=== PATIENT | male | born 1950 | race Caucasian/White ===

== ENCOUNTER 2022-12-26 19:53 | Inpatient (IN) ==
[2022-12-26 20:57] LABS: Basophils # (auto) 0.04 K/uL (0-0.2); Basophils % (auto) 0.3 %; Eosinophils # (auto) 0.72 K/uL (0-0.50); Eosinophils % (auto) 6.1 %; Hematocrit (blood only) 28.2 % (42.0-52.0); Immature Granulocytes # (auto) 0.13 K/uL (0.01-0.20); Immature Granulocytes % (auto) 1.1 %; Lymphocytes # (auto) 1.68 K/uL (1.2-3.4); Lymphocytes % (auto) 14.3 %; Mean Corpuscular Hemoglobin 29.9 pg (25.0-34.0); Mean Corpuscular Hgb Conc 31.9 g/dL (32.0-36.0); Mean Corpuscular Volume 93.7 fL (80.0-100.0); Mean Platelet Volume 10.4 fL (9.4-12.4); Monocytes % (auto) 4.3 %; Neutrophils # (auto) 8.66 K/uL (1.40-6.50); Neutrophils % (auto) 73.9 %; Platelet Count 275 K/uL (130-400); RDW Coefficient of Variation 13.8 % (11.5-14.5); RDW Standard Deviation 46.8 fL (36.4-46.3); Red Blood Count 3.01 M/uL (4.70-6.10); White Blood Count 11.73 K/ul (4.8-10.8)
[2022-12-26] MEDS ORDERED: SODIUM CHLORIDE 0.9% 1000ML 1,000 ML IV ONE (21:02)
--- NOTE | 2022-12-26 21:07 | Emergency Department Note ---
Impression & Plan Syncope, Anemia, Acute hypotension ED Provider Note Name: MARIELY CORONADO Age: 71 Sex: M Arrives Via: Ambulance Informant: Patient, ED Provider: Darrell Morris MD Chief Complaint: Syncope Impression: As per impressions above Medical Decision Making: Pleasant 71-year-old gentleman with history of hyperlipidemia who had a left knee replacement last week. He had been doing well and was increasing activity levels. Had a syncopal event followed by a second syncopal event with questionable shaking of the right arm this evening. Pale diaphoretic for his and EMS. No head injury or trauma during this. On arrival patient is mildly hypotensive, pale appearing and tired. He has extensive bruising of the left leg. Given recent surgery and the syncope he had a CT of the head without contrast which was negative as well as a CT PE study which is negative. His laboratory findings are remarkable for anemia of hemoglobin 9 which is a drop from 13-14 as an outpatient prior to surgery. He is adamant no black or bloody stools and that he had a normal brown bowel movement this morning. He has soft nontender abdomen. EKG is unremarkable as is his initial troponin. I suspect his syncope is likely exertional vasovagal plus his anemia postoperatively however in the setting of initial hypotension, anemia, age his Andover score is not low risk and thus hospitalization is indicated. Patient is comfortable with hospitalization as his . I will note he was given some IV fluids and looks significantly improved and feeling much better. Hospitalist consulted for further management Prior Medical Record and Triage/Nursing Notes reviewed by Me External chart reviewed by me including recent hospitalization for left knee replacement Differentials: Vasovagal event, dehydration, infection, hypoglycemia, electroly te abnormalities, cardiac sources, intracerebral event, pulmonary embolism, seizure, toxicologic, neurologic, as well as other pathologies. Vital Signs: reviewed and remarkable for no significant abnormalities Interventions: Normal saline bolus 1 L IV Labs:Reviewed and remarkable for anemia other labs reviewed me Imaging:CT of the chest with angio as per my informal interpretation. No pneumothorax, no pneumonia, no effusion. There is no clear evidence of PE appreciated. This was confirmed by radiologist. CT of the head without contrast as per my informal interpretation. There is no intracranial hemorrhage or mass effect appreciated. This was confirmed by radiologist. EKG:As per my interpretation. Indication syncope. Normal sinus rhythm 85 bpm QTc of 423. There is no ectopy nor ischemia. Compared to an EKG of June 09, 2022 there is no significant change. Cardiac/Tele Monitoring: Cardiac Monitoring: An Order was placed for continuous cardiac monitoring. The monitor shows a rate of 80 with a normal sinus rhythm. [facility] Disposition:Hospitalization. Condition: Good History of Present Illness:71-year-old male arrives for evaluation of syncope. Patient had a left knee replacement at this facility 1 week ago. There were no complications. He states he was doing well for the last week. He has been doing his therapy and has not had any major issues. Today he was doing his exercises undergone up the stairs and then back into the kitchen. notes he looked severely lightheaded pale and diaphoretic. This was followed by a brief syncopal episode. He did not strike his head or fall to the ground. Patient came to briefly and mumbled some and then passed out again. called 911. By time EMS arrived patient was coming to was answering questions but was still somewhat diaphoretic. notes patient looks quite pale right now. She does note that during the 1 syncope it seemed like his right arm was shaking some. Patient denies any shortness of breath, chest pain, nausea, vomiting, abdominal pain, back pain, black or bloody stools, headache, neurologic deficits, any other concerning signs or symptoms other than some mild left knee discomfort which has been ongoing since the surgery and its not bothering him much. He did take a Oxy IR earlier today. He has no history of stomach ulcers, PEs or bleeding disorder. Past History:Hyperlipidemia Home Medications:Aspirin 81 mg daily, Celebrex, Zyrtec, simvastatin, Percocet Allergies:Latex Vitals:Blood Pressure: 102/70, Pulse 105, RR 13, T 36.5C, O2 98% on RA Physical Exam: GENERAL: Patient is pale/tired appearing and in minimal distress. HEAD: AT/NC FACE: Pale conjunctiva, dry membranes RESPIRATORY: No dyspnea. Clear to auscultation and equal bilaterally. No wheeze, no rhonchi. CARDIOVASCULAR: Tachy.No murmurs, rubs, gallops appreciated. GASTROINTESTINAL: Abdomen soft, non-tender, no peritonitis.Bowel sounds positive.No masses appreciated. EXTREMITIES: Left leg. Left leg is in a compression stocking. There is bruising over the left medial thigh and the left knee is moderately swollen but nontender with dressing intact. No tenderness over the left calf or significant swelling appreciated. Good distal pulses. Otherwise normal motion all extremities, no cyanosis, no edema. NEUROLOGIC: Alert and oriented, no focal neurologic deficit appreciated SKIN: No rash, no jaundice, no diaphoresis. PSYCH: Appropriate GCS: 15 ED Course: Times/Reassessments: Patient vastly improved after some IV fluids. He looks well and is in no distress however given his syncope risk scoring he is agreeable to hospitalization Darrell Morris MD Past Med/Surg History Medical History Hyperlipidemia Osteoarthritis Left knee Surgical History H/O colonoscopy History of anesthesia reaction Spinal patch needed/placed after epidural for surgery in 1993 History of open reduction and internal fixation (ORIF) procedure 1993 - Right lower leg History of open reduction and internal fixation (ORIF) procedure Left ankle ORIF (06/09/22): LMA#5 + PNB at [facility] Hx of cataract extraction R/L Family History Mother , age 90 Heart disease Father , age 41 of an [place] Myocardial infarction Other No family history of adverse response to anesthesia Denies family history of Ovarian cancer Prostate cancer Breast cancer Lung cancer Colorectal cancer Social History (Updated 12/27/22 @ 10:02 by Lion Bergman MD) Smoking Status: Never smoker Tobacco Type: Cigarettes Second Hand Exposure: No; Do You Dip or Chew Tobacco: No; Hx Alcohol Use: Yes Alcohol type: wine Alcohol Intake Frequency Comment: daily Hx Substance Use: No Preferred Language: Serbian Communication Ability: Effective Visual Impairment: Partially Limited Hearing Ability: Normal Commodity Industry Analyst Required: No Beliefs That Will Affect Care: None marital status: Current Living Situation: Spouse 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 Feels Safe at Home: Yes Safety Concerns: Feels Safe At This Time Childhood Exposure to Second-Hand Smoke: Yes caffeine: Yes Dental Care, Regularly: Yes Physical Activity Frequency: Daily Seatbelt Use: always Sunscreen Use: Yes Assistive Devices: Walker Allergies Allergies Allergy/AdvReac Type Severity Reaction Status Date / Time latex Allergy Mild itchy nose Verified 12/19/22 06:19 Home Meds Home Medications Medication Instructions Recorded Confirmed cetirizine 10 mg tablet (Zyrtec) 10 mg PO DAILY PRN Allergy Symptoms 11/05/21 12/26/22 multivitamin 1 tab PO QAM 11/05/21 12/26/22 coenzyme Q10 100 mg capsule (Co 100 mg PO HS 11/11/22 12/26/22 Q-10) ezetimibe 10 mg tablet 10 mg PO QPM 11/11/22 12/26/22 loratadine-pseudoephedrine ER 10 1 tab PO DAILY PRN Allergy Symptoms 11/11/22 12/26/22 mg-240 mg tablet,extended [id number] (Claritin-D 24 Hour) simvastatin 40 mg tablet 40 mg PO QPM 11/11/22 12/26/22 Previous Rx's Medication Instructions Recorded aspirin 81 mg tablet,delayed 81 mg PO BID #60 tabs 12/19/22 release celecoxib 200 mg capsule (Celebrex) 200 mg PO Q12H PRN pain #30 caps 12/19/22 oxycodone-acetaminophen 5 mg-325 1 tab PO Q6H PRN pain #30 tabs 12/19/22 mg tablet (Percocet) Results & Data (ED) Vital Signs Vital Signs - 24 hr 12/26/22 20:42 12/26/22 20:22 12/26/22 20:44 Temperature 36.5 C Temperature Source Oral Pulse Rate 73 93 H Pulse Rate [Finger] Respiratory Rate 18 Respiratory Effort / Characteristics Respiratory Depth Normal Blood Pressure 102/70 Blood Pressure [Right Arm] Blood Pressure Mean 80 Blood Pressure Mean [Right Arm] Pulse Oximetry 96 98 Oxygen Delivery Method Room Air Room Air Sepsis Recent Fever Within 48 Hours No Sepsis New/Unexplained Change in Mental Status No Sepsis Action Taken by Nursing No Action Required 12/26/22 20:45 12/26/22 20:45 12/26/22 23:38 Temperature Temperature Source Pulse Rate Pulse Rate [Finger] 84 Respiratory Rate 13 18 Respiratory Effort / Characteristics Non-Labored Spontaneous Respiratory Depth Normal Normal Blood Pressure Blood Pressure [Right Arm] 102/70 112/73 Blood Pressure Mean Blood Pressure Mean [Right Arm] 80 86 Pulse Oximetry 97 98 98 Oxygen Delivery Method Room Air Room Air Sepsis Recent Fever Within 48 Hours Sepsis New/Unexplained Change in Mental Status Sepsis Action Taken by Nursing Laboratory Data 12/26/22 20:20 12/26/22 20:20 Lab Results 12/26/22 12/26/22 12/26/22 Range/Units 20:20 20:20 20:20 WBC 11.73 H (4.8-10.8) K/ul RBC 3.01 L (4.70-6.10) M/uL Hgb 9.0 L (14.0-18.0) g/dl Hct 28.2 L (42.0-52.0) % MCV 93.7 (80.0-100.0) fL MCH 29.9 (25.0-34.0) pg MCHC 31.9 L (32.0-36.0) g/dL RDW Std Deviation 46.8 H (36.4-46.3) fL RDW Coeff of Concepcion 13.8 (11.5-14.5) % Plt Count 275 (130-400) K/uL MPV 10.4 (9.4-12.4) fL Immature Gran % (Auto) 1.1 % Neut % (Auto) 73.9 % Lymph % (Auto) 14.3 % Stanley % (Auto) 4.3 % Eos % (Auto) 6.1 % Baso % (Auto) 0.3 % Neut # (Auto) 8.66 H (1.40-6.50) K/uL Lymph # (Auto) 1.68 (1.2-3.4) K/uL Stanley # (Auto) 0.50 (0.11-0.59) K/uL Eos # (Auto) 0.72 H (0-0.50) K/uL Baso # (Auto) 0.04 (0-0.2) K/uL Immature Gran # (Auto) 0.13 (0.01-0.20) K/uL Sodium 135 L (136-145) mmol/L Potassium 4.3 (3.5-5.1) mmol/L Chloride 103 (98-107) mmol/L Carbon Dioxide 25 (21-32) mmol/L Anion Gap 7 (3-11) BUN 29 H (6-23) mg/dl Creatinine 0.80 (0.6-1.4) mg/dl Est Cr Clr Drug Dosing 93.3 ml/min Est GFR ( Amer) 104.9 ml/min Est GFR (Non-Af Amer) 90.5 ml/min BUN/Creatinine Ratio 36.3 H (10-20) Glucose 141 H (70-99(Fasting)) mg/dl Calcium 8.5 L (8.6-10.3) mg/dl Magnesium 1.9 (1.7-2.4) mg/dl Total Bilirubin 0.5 (0.2-1.0) mg/dl AST 14 (13-39) U/L ALT 14 (7-52) U/L Alkaline Phosphatase 59 (34-104) U/L Total Protein 6.1 (6.0-8.3) gm/dl Albumin 3.3 L (3.4-5.0) gm/dl Globulin 2.8 (2.5-4.0) gm/dl Albumin/Globulin Ratio 1.2 (0.9-2) TSH 3.347 (0.300-4.500) uIu/ml Urine Color Urine Appearance (Clear) Urine pH (4.5-7.5) Ur Specific [place] (1.000-1.030) Urine Protein (Negative) Urine Glucose (UA) (Negative) Urine Ketones (Negative) Urine Blood (Negative) Urine Nitrite (Negative) Urine Bilirubin (Negative) Urine Urobilinogen (Negative) Ur Leukocyte Esterase (Negative) 12/26/22 Range/Units 21:55 WBC (4.8-10.8) K/ul RBC (4.70-6.10) M/uL Hgb (14.0-18.0) g/dl Hct (42.0-52.0) % MCV (80.0-100.0) fL MCH (25.0-34.0) pg MCHC (32.0-36.0) g/dL RDW Std Deviation (36.4-46.3) fL RDW Coeff of Concepcion (11.5-14.5) % Plt Count (130-400) K/uL MPV (9.4-12.4) fL Immature Gran % (Auto) % Neut % (Auto) % Lymph % (Auto) % Stanley % (Auto) % Eos % (Auto) % Baso % (Auto) % Neut # (Auto) (1.40-6.50) K/uL Lymph # (Auto) (1.2-3.4) K/uL Stanley # (Auto) (0.11-0.59) K/uL Eos # (Auto) (0-0.50) K/uL Baso # (Auto) (0-0.2) K/uL Immature Gran # (Auto) (0.01-0.20) K/uL Sodium (136-145) mmol/L Potassium (3.5-5.1) mmol/L Chloride (98-107) mmol/L Carbon Dioxide (21-32) mmol/L Anion Gap (3-11) BUN (6-23) mg/dl Creatinine (0.6-1.4) mg/dl Est Cr Clr Drug Dosing ml/min Est GFR ( Amer) ml/min Est GFR (Non-Af Amer) ml/min BUN/Creatinine Ratio (10-20) Glucose (70-99(Fasting)) mg/dl Calcium (8.6-10.3) mg/dl Magnesium (1.7-2.4) mg/dl Total Bilirubin (0.2-1.0) mg/dl AST (13-39) U/L ALT (7-52) U/L Alkaline Phosphatase (34-104) U/L Total Protein (6.0-8.3) gm/dl Albumin (3.4-5.0) gm/dl Globulin (2.5-4.0) gm/dl Albumin/Globulin Ratio (0.9-2) TSH (0.300-4.500) uIu/ml Urine Color Yellow Urine Appearance Clear (Clear) Urine pH 5.5 (4.5-7.5) Ur Specific [place] 1.043 H (1.000-1.030) Urine Protein Negative (Negative) Urine Glucose (UA) Negative (Negative) Urine Ketones Trace H (Negative) Urine Blood Negative (Negative) Urine Nitrite Negative (Negative) Urine Bilirubin Negative (Negative) Urine Urobilinogen Negative (Negative) Ur Leukocyte Esterase Negative (Negative) Administered Medications Aspirin (Aspirin 81 Mg Ectab) 81 mg PO BID JACKELINE Stop: 01/26/23 01:15 Last Admin: 12/27/22 08:31 Dose: 81 mg Documented By: Admin: 12/27/22 01:58 Dose: 81 mg Documented By: CJC Ezetimibe (Ezetimibe 10 Mg Tablet) 10 mg PO QPM JACKELINE Stop: 01/26/23 20:59 Last Admin: 12/27/22 01:59 Dose: 10 mg Documented By: MARCELLA Sodium Chloride (Nss 1000ml) 1,000 mls @ 125 mls/hr IV .Q8H JACKELINE Stop: 01/26/23 08:14 Last Admin: 12/27/22 08:31 Dose: 125 mls/hr Documented By: ANTONIO Pantoprazole Sodium 40 mg/ (Syringe) 10 mls @ 5 mls/min IV BID JACKELINE Stop: 01/26/23 10:29 Last Admin: 12/27/22 10:58 Dose: 5 mls/min Documented By: ANTONIO Simvastatin (Simvastatin 40 Mg Tab) 40 mg PO QPM JACKELINE Stop: 01/26/23 20:59 Last Admin: 12/27/22 01:58 Dose: 40 mg Documented By: MARCELLA Discontinued Medications Celecoxib (Celebrex 200 Mg Cap) 200 mg PO Q12H PRN PRN Reason: pain Stop: 01/26/23 01:15 Last Admin: 12/27/22 01:58 Dose: 200 mg Documented By: MARCELLA Sodium Chloride (Nss 1000ml) 1,000 mls @ 999 mls/hr IV .Q1H1M ONE Stop: 12/26/22 22:02 Last Infusion: 12/26/22 23:29 Dose: 0 mls/hr Documented By: Admin: 12/26/22 22:08 Dose: 999 mls/hr Documented By: JENY Ioversol (Ioversol 350 Mg 125ml Prefilled Syringe) 119 ml IV ONCE ONE Stop: 12/26/22 21:38 Last Admin: 12/26/22 21:37 Dose: 119 ml Documented By: SHANTE Discharge Plan Visit Data Chief Complaint: Seizure Stated Complaint: SEIZURE LIKE ACTIVITY ED Provider: Darrell Morris Discharge Problem: Syncope, Anemia, Acute hypotension Patient Disposition: Admitted As Inpatient Discharge Instructions Interventions: ED Discharge Assessment Last Done: 12/27/22 00:59
[2022-12-26 21:13] LABS: Albumin Globulin Ratio 1.2 (0.9-2); Albumin Level 3.3 gm/dl (3.4-5.0); BUN Creatinine Ratio 36.3 (10-20); Bilirubin,Total 0.5 mg/dl (0.2-1.0); Calcium 8.5 mg/dl (8.6-10.3); Creatinine Clr Calc Pharmacy 93.3 ml/min; Est GFR (African American) 104.9 ml/min; Est GFR (Non-African American) 90.5 ml/min; Globulin 2.8 gm/dl (2.5-4.0); Magnesium 1.9 mg/dl (1.7-2.4); Potassium 4.3 mmol/L (3.5-5.1); Total Protein 6.1 gm/dl (6.0-8.3)
[2022-12-26] MEDS ORDERED: IOVERSOL 350 MG 125mL Prefilled Syringe IV ONE (21:37)
--- NOTE | 2022-12-26 22:01 | CT Scan Report ---
Exam(s): CT HEAD Without Contrast EXAM: CT Head Without Intravenous Contrast CLINICAL HISTORY: Reason for exam: syncope. TECHNIQUE: Axial computed tomography images of the head/brain without intravenous contrast. CTDI is 35.65 mGy and DLP is 625.41 mGy-cm. Automated exposure control was utilized for the study. A dose lowering technique was utilized adhering to the principles of ALARA. COMPARISON: No relevant prior studies available. FINDINGS: No acute intracranial hemorrhage. No midline shift or mass effect. The territorial oswald-white matter differentiation is maintained throughout. Age-related cerebral volume loss. Periventricular and subcortical white matter hypoattenuation, consistent with chronic microangiopathy. The visualized orbits appear grossly unremarkable. The calvarium is intact. The visualized paranasal sinuses and mastoid air cells are grossly clear. IMPRESSION: No acute intracranial hemorrhage, midline shift, or mass effect. Electronically signed by: Andrey Medeiros MD 12/26/22 22:00 PM
--- NOTE | 2022-12-26 22:02 | CT Scan Report ---
Exam(s): CTA CHEST IV Amt: 119 ml optiray 350 EXAM: CT Angiography Chest With Intravenous Contrast CLINICAL HISTORY: Reason for exam: PE - syncope post op. TECHNIQUE: Axial computed tomographic angiography images of the chest with intravenous contrast. CTDI is 26.5 mGy and DLP is 948.6 mGy-cm. Automated exposure control was utilized for the study. A dose lowering technique was utilized adhering to the principles of ALARA. MIP reconstructed images were created and reviewed. COMPARISON: No relevant prior studies available. FINDINGS: Pulmonary arteries: Unremarkable. No acute pulmonary embolism. Aorta: Atherosclerotic changes of the aorta. No thoracic aortic aneurysm. Lungs: Unremarkable. No mass. No consolidation. Pleural space: Unremarkable. No significant effusion. No pneumothorax. Heart: Unremarkable. No cardiomegaly. No significant pericardial effusion. No evidence of RV dysfunction. Mediastinum: Small hiatal hernia. Bones/joints: Degenerative changes of the spine. No acute fracture. No dislocation. Soft tissues: Unremarkable. Lymph nodes: Unremarkable. No enlarged lymph nodes. IMPRESSION: No acute pulmonary embolism. Electronically signed by: Andrey Medeiros MD 12/26/22 22:01 PM
[2022-12-26 22:28] LABS: Appearance Urine Clear (Clear); Bilirubin Urine Negative (Negative); Blood Urine Negative (Negative); Color Urine Yellow; Glucose Urine UA Negative (Negative); Ketones Urine Trace (Negative); Leukocyte Esterase Urine Negative (Negative); Nitrite Urine Negative (Negative); Protein Urine Negative (Negative); Specific Gravity Urine 1.043 (1.000-1.030); Urobilinogen Urine Negative (Negative); pH Urine 5.5 (4.5-7.5)
--- NOTE | 2022-12-26 23:45 | History & Physical Report ---
Date of Service December 26, 2022 Assessment & Plan (1) Seizure-like activity: Plan: 71 yo male with PMHx of allergic rhinitis and dyslipidemia presents with seizure like activity. #Seizure like activity -presented with 2 episodes of seizure like activity earlier this afternoon. He appeared to have a prodromal state, no recollection of episodes, and no post ictal state. Ddx CVA vs seizure. Vitals wnl, afebrile. Mild leukocytosis however less likely due to infection. Trop neg. UA neg. -CTA without PE -CT head unremarkable -MRI brain pending -CTA head/neck pending; will obtain in am since he received contrast with CTA chest -echo pending -A1c, lipids pending -neuro checks, seizure/fall precautions -monitor on tele -neurology consulted #H/o L TKA -procedure was 1 wk ago, progressing well. Follows with [facility] ortho. Cont. ASA for DVT ppx per ortho recs. Celecoxib prn for pain/anti-inflammation. #Dyslipidemia -cont. simvastatin, ezetimibe DVT ppx: ASA (per ortho) FEN/GI: regular Code Status: full Dispo: PCU (2) Status post left knee replacement: (3) Allergic rhinitis: (4) Dyslipidemia: History of Present Illness Chief Complaint: seizure like activity Primary Care Provider: Jhony Rodriguez, 71 yo male with PMHx of allergic rhinitis and dyslipidemia presents with seizure like activity. at bedside. This afternoon he had finished his physical therapy s/p TKA and shortly after started having chills, diaphoresis, and lightheadedness. He sat down on a chair and per his head fell backwards with his eyes wide open for about 30 seconds. During this he had a mild R arm tremor. Denies post ictal state but does not recall this seizure like activity episode. His proceeded to call 911 and the patient had a 2nd episode similar to the first. Denies fever, fatigue, headache, chest pain, sob, abd pain, nausea, vomiting, diarrhea, constipation, dysuria, extremity numbness/tingling/weakness. FHx of stroke in grandfather as well as LA in father at the age of 41. He has no h/o seizure or syncope. No heart history. Of note patient did have a L TKA performed 1 wk ago. He is on ASA for DVT ppx and celecoxib for pain/anti-inflammation. He did take an oxycodone earlier in the day without complaints and has taken a few doses over the past week. He has been doing PT at home and progressing well without complaints. Follows with ortho. Allergies Allergy/AdvReac Type Severity Reaction Status Date / Time latex Allergy Mild itchy nose Verified 12/19/22 06:19 Home Medications Medication Instructions Recorded Confirmed Type cetirizine 10 mg tablet (Zyrtec) 10 mg PO DAILY PRN Allergy Symptoms 11/05/21 12/26/22 History multivitamin 1 tab PO QAM 11/05/21 12/26/22 History coenzyme Q10 100 mg capsule (Co 100 mg PO HS 11/11/22 12/26/22 History Q-10) ezetimibe 10 mg tablet 10 mg PO QPM 11/11/22 12/26/22 History loratadine-pseudoephedrine ER 10 1 tab PO DAILY PRN Allergy Symptoms 11/11/22 12/26/22 History mg-240 mg tablet,extended [id number] (Claritin-D 24 Hour) simvastatin 40 mg tablet 40 mg PO QPM 11/11/22 12/26/22 History aspirin 81 mg tablet,delayed 81 mg PO BID #60 tabs 12/19/22 12/26/22 Rx release celecoxib 200 mg capsule (Celebrex) 200 mg PO Q12H PRN pain #30 caps 12/19/22 12/26/22 Rx oxycodone-acetaminophen 5 mg-325 1 tab PO Q6H PRN pain #30 tabs 12/19/22 12/26/22 Rx mg tablet (Percocet) Past Med/Surg History Medical History Hyperlipidemia Osteoarthritis Left knee Surgical History H/O colonoscopy History of anesthesia reaction Spinal patch needed/placed after epidural for surgery in 1993 History of open reduction and internal fixation (ORIF) procedure 1993 - Right lower leg History of open reduction and internal fixation (ORIF) procedure Left ankle ORIF (06/09/22): LMA#5 + PNB at [facility] Hx of cataract extraction R/L Family History Mother , age 90 Heart disease Father , age 41 of an [place] Myocardial infarction Other No family history of adverse response to anesthesia Denies family history of Ovarian cancer Prostate cancer Breast cancer Lung cancer Colorectal cancer Social History Smoking Status: Never smoker Tobacco Type: Cigarettes Second Hand Exposure: No; Do You Dip or Chew Tobacco: No; Hx Alcohol Use: Yes Alcohol type: wine Alcohol Intake Frequency Comment: daily Hx Substance Use: No Preferred Language: Kiswahili Communication Ability: Effective Visual Impairment: Partially Limited Hearing Ability: Normal Care Nurse Rn Required: No Beliefs That Will Affect Care: None marital status: Current Living Situation: Spouse 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 AOx3. Vitals as above. HEENT: No scleral injection or discharge. Moist mucous membranes. Neck: Supple without lymphadenopathy or thyromegaly. Trachea midline. Lungs: Clear to auscultation bilaterally with good effort. No wheezes/rales/rhonchi. Cardiac: Regular rate and rhythm. No murmurs.No lower extremity edema. 2+ distal peripheral pulses. Abdomen: Bowel sounds present. Soft, nontender, and nondistended.No guarding. No hepatosplenomegaly. MSK: No cyanosis or clubbing. Extremities motor strength 5/5. L knee swollen and in bandages s/p TKA but without excessive pain/warmth/tenderness. Skin: No abnormal rashes, warm, dry. Neurologic: Grossly intact cranial nerves. PERRL. Results & Data Results & Data Vital Signs (Past 12 Hours) Vital Signs Temp Pulse Pulse Resp BP BP Pulse Ox 12/26/22 23:38 84 18 112/73 98 12/26/22 20:45 98 12/26/22 20:45 13 102/70 97 12/26/22 20:44 98 07/31/23 20:22 93 H 12/26/22 20:42 36.5 C 73 18 102/70 96 O2 Del Method 12/26/22 23:38 Room Air 12/26/22 20:45 Room Air 12/26/22 20:45 12/26/22 20:44 Room Air 12/26/22 20:22 12/26/22 20:42 Room Air Laboratory Results Laboratory Results WBC 11.73 K/ul (4.8-10.8) H 12/26/22 20:20 RBC 3.01 M/uL (4.70-6.10) L 12/26/22 20:20 Hgb 9.0 g/dl (14.0-18.0) L 12/26/22 20:20 Hct 28.2 % (42.0-52.0) L 12/26/22 20:20 MCV 93.7 fL (80.0-100.0) 12/26/22 20:20 MCH 29.9 pg (25.0-34.0) 12/26/22 20:20 MCHC 31.9 g/dL (32.0-36.0) L 12/26/22 20:20 RDW Std Deviation 46.8 fL (36.4-46.3) H 12/26/22 20:20 RDW Coeff of Concepcion 13.8 % (11.5-14.5) 12/26/22 20:20 Plt Count 275 K/uL (130-400) 12/26/22 20:20 MPV 10.4 fL (9.4-12.4) 12/26/22 20:20 Immature Gran % (Auto) 1.1 % 12/26/22 20:20 Neut % (Auto) 73.9 % 12/26/22 20:20 Lymph % (Auto) 14.3 % 12/26/22 20:20 [place] % (Auto) 4.3 % 12/26/22 20:20 Eos % (Auto) 6.1 % 12/26/22 20:20 Baso % (Auto) 0.3 % 12/26/22 20:20 Neut # (Auto) 8.66 K/uL (1.40-6.50) H 12/26/22 20:20 Lymph # (Auto) 1.68 K/uL (1.2-3.4) 12/26/22 20:20 [place] # (Auto) 0.50 K/uL (0.11-0.59) 12/26/22 20:20 Eos # (Auto) 0.72 K/uL (0-0.50) H 12/26/22 20:20 Baso # (Auto) 0.04 K/uL (0-0.2) 12/26/22 20:20 Immature Gran # (Auto) 0.13 K/uL (0.01-0.20) 12/26/22 20:20 Sodium 135 mmol/L (136-145) L 12/26/22 20:20 Potassium 4.3 mmol/L (3.5-5.1) 12/26/22 20:20 Chloride 103 mmol/L (98-107) 12/26/22 20:20 Carbon Dioxide 25 mmol/L (21-32) 12/26/22 20:20 Anion Gap 7 (3-11) 12/26/22 20:20 BUN 29 mg/dl (6-23) H 12/26/22 20:20 Creatinine 0.80 mg/dl (0.6-1.4) 12/26/22 20:20 Est Cr Clr Drug Dosing 93.3 ml/min 12/26/22 20:20 Est GFR ( Amer) 104.9 ml/min 12/26/22 20:20 Est GFR (Non-Af Amer) 90.5 ml/min 12/26/22 20:20 BUN/Creatinine Ratio 36.3 (10-20) H 12/26/22 20:20 Glucose 141 mg/dl (70-99(Fasting)) H 12/26/22 20:20 Calcium 8.5 mg/dl (8.6-10.3) L 12/26/22 20:20 Magnesium 1.9 mg/dl (1.7-2.4) 12/26/22 20:20 Total Bilirubin 0.5 mg/dl (0.2-1.0) 12/26/22 20:20 AST 14 U/L (13-39) 12/26/22 20:20 ALT 14 U/L (7-52) 12/26/22 20:20 Alkaline Phosphatase 59 U/L (34-104) 12/26/22 20:20 Troponin I High Sens 7.5 pg/ml (0-20) 12/27/22 00:29 Total Protein 6.1 gm/dl (6.0-8.3) 12/26/22 20:20 Albumin 3.3 gm/dl (3.4-5.0) L 12/26/22 20:20 Globulin 2.8 gm/dl (2.5-4.0) 12/26/22 20:20 Albumin/Globulin Ratio 1.2 (0.9-2) 12/26/22 20:20 TSH 3.347 uIu/ml (0.300-4.500) 12/26/22 20:20 Urine Color Yellow 12/26/22 21:55 Urine Appearance Clear (Clear) 12/26/22 21:55 Urine pH 5.5 (4.5-7.5) 12/26/22 21:55 Ur Specific [place] 1.043 (1.000-1.030) H 12/26/22 21:55 Urine Protein Negative (Negative) 12/26/22 21:55 Urine Glucose (UA) Negative (Negative) 12/26/22 21:55 Urine Ketones Trace (Negative) H 12/26/22 21:55 Urine Blood Negative (Negative) 12/26/22 21:55 Urine Nitrite Negative (Negative) 12/26/22 21:55 Urine Bilirubin Negative (Negative) 12/26/22 21:55 Urine Urobilinogen Negative (Negative) 12/26/22 21:55 Ur Leukocyte Esterase Negative (Negative) 12/26/22 21:55 Impressions Chest CTA 12/26/22 21:02 Exam(s): CTA CHEST IV Amt: 119 ml optiray 350 EXAM: CT Angiography Chest With Intravenous Contrast CLINICAL HISTORY: Reason for exam: PE - syncope post op. TECHNIQUE: Axial computed tomographic angiography images of the chest with intravenous contrast. CTDI is 26.5 mGy and DLP is 948.6 mGy-cm. Automated exposure control was utilized for the study. A dose lowering technique was utilized adhering to the principles of ALARA. MIP reconstructed images were created and reviewed. COMPARISON: No relevant prior studies available. FINDINGS: Pulmonary arteries: Unremarkable. No acute pulmonary embolism. Aorta: Atherosclerotic changes of the aorta. No thoracic aortic aneurysm. Lungs: Unremarkable. No mass. No consolidation. Pleural space: Unremarkable. No significant effusion. No pneumothorax. Heart: Unremarkable. No cardiomegaly. No significant pericardial effusion. No evidence of RV dysfunction. Mediastinum: Small hiatal hernia. Bones/joints: Degenerative changes of the spine. No acute fracture. No dislocation. Soft tissues: Unremarkable. Lymph nodes: Unremarkable. No enlarged lymph nodes. IMPRESSION: No acute pulmonary embolism. Electronically signed by: Andrey Medeiros MD 12/26/22 22:[address] 12/26/22 21:02 Exam(s): CT HEAD Without Contrast EXAM: CT Head Without Intravenous Contrast CLINICAL HISTORY: Reason for exam: syncope. TECHNIQUE: Axial computed tomography images of the head/brain without intravenous contrast. CTDI is 35.65 mGy and DLP is 625.41 mGy-cm. Automated exposure control was utilized for the study. A dose lowering technique was utilized adhering to the principles of ALARA. COMPARISON: No relevant prior studies available. FINDINGS: No acute intracranial hemorrhage. No midline shift or mass effect. The territorial oswald-white matter differentiation is maintained throughout. Age-related cerebral volume loss. Periventricular and subcortical white matter hypoattenuation, consistent with chronic microangiopathy. The visualized orbits appear grossly unremarkable. The calvarium is intact. The visualized paranasal sinuses and mastoid air cells are grossly clear. IMPRESSION: No acute intracranial hemorrhage, midline shift, or mass effect. Electronically signed by: Andrey Medeiros MD 12/26/22 22:00 PM Supervising Physician Co-Signing Physician Notes attending addendum: I have physically seen this patient, have supervised the medical residents activities, and agree with the H&P unless as otherwise noted. Assessment and Plan: Seizure-like activity- The patient will be admitted to telemetry for serial cardiac enzymes, serial EKG's, cardiac rhythm monitoring and a 2-D echocardiogram with Dopplers. At least 2 witnessed episodes CTA chest negative for PE CT head unremarkable MRI brain pending Order EEG CTA head and neck pending Neurochecks and seizure precautions Consult neurology Status post left TKA- 1 week ago underwent surgery without complication Continue aspirin for DVT prophylaxis Does not appear to be related to current symptomatology Dyslipidemia- Continue simvastatin and Zetia Check a fasting lipid panel Remaining orders and notations as noted Resident Activity Tracking Resident Involvement: Resident Care Provided Care Provided: [facility]
[2022-12-27] MEDS ORDERED: PHARMACIST DISCHARGE MED REC CONSULT PRN (01:16)
[2022-12-27] MEDS ORDERED: ONDANSETRON 4 MG OD TAB PO PRN (01:16)
[2022-12-27] MEDS ORDERED: ACETAMINOPHEN 325 MG TAB PO PRN (01:16)
[2022-12-27] MEDS ORDERED: CeleBREX 200 MG CAP PO PRN (01:16)
[2022-12-27] MEDS ORDERED: POLYETHYLENE (MIRALAX) 17 GM PACK PO PRN (01:16)
[2022-12-27] MEDS: SIMVASTATIN 40 MG TAB PO SCH ×2 (01:58→20:43)
[2022-12-27] MEDS: ASPIRIN 81 MG ECTAB PO SCH ×2 (01:58→08:31)
[2022-12-27] MEDS: EZETIMIBE 10 MG TABLET PO SCH ×2 (01:59→20:43)
[2022-12-27] MEDS: SODIUM CHLORIDE 0.9% 1000ML 1,000 ML IV SCH ×2 (08:31→18:38)
[2022-12-27 09:33] LABS: Basophils # (auto) 0.02 K/uL (0-0.2); Basophils % (auto) 0.3 %; Eosinophils # (auto) 0.36 K/uL (0-0.50); Eosinophils % (auto) 5.1 %; Hemoglobin 8.4 g/dl (14.0-18.0); Immature Granulocytes # (auto) 0.12 K/uL (0.01-0.20); Immature Granulocytes % (auto) 1.7 %; Lymphocytes % (auto) 18.5 %; Mean Corpuscular Hemoglobin 29.9 pg (25.0-34.0); Mean Corpuscular Hgb Conc 32.3 g/dL (32.0-36.0); Mean Corpuscular Volume 92.5 fL (80.0-100.0); Monocytes # (auto) 0.32 K/uL (0.11-0.59); Monocytes % (auto) 4.5 %; Neutrophils # (auto) 4.92 K/uL (1.40-6.50); Neutrophils % (auto) 69.9 %; Platelet Count 237 K/uL (130-400); RDW Coefficient of Variation 13.9 % (11.5-14.5); RDW Standard Deviation 47.2 fL (36.4-46.3); Red Blood Count 2.81 M/uL (4.70-6.10); White Blood Count 7.04 K/ul (4.8-10.8)
[2022-12-27 09:49] LABS: BUN Creatinine Ratio 58.2 (10-20); Calcium 8.9 mg/dl (8.6-10.3); Chol HDL Ratio 4.6 (0-5); Creatinine Clr Calc Pharmacy 111.2 ml/min; Est GFR (African American) 112.8 ml/min; Est GFR (Non-African American) 97.4 ml/min; Magnesium 2.1 mg/dl (1.7-2.4); Potassium 4.3 mmol/L (3.5-5.1)
--- NOTE | 2022-12-27 09:54 | Neurology Consultation ---
Date of Consultation December 27, 2022 Assessment & Plan (1) Syncope: (2) Seizure-like activity: (3) Status post left knee replacement: Plan December 26, the patient had two brief, [id number], syncopal episodes with some very slight tremor of the right upper extremity during the event. The patient was noted to have low blood pressure, a significant anemia, and dehydration on laboratory testing. All of these would put him at risk for and orthostatic hypotension /syncopal event. In addition, the patient remained in the sitting position throughout the spells which probably prolonged them. I view his right arm tremor as nonspecific although if it is seizure like, it would be secondary and not a primary seizure. On neurologic examination he is unremarkable with no focal findings, meningeal signs, or encephalopathy. Physically he feels back to baseline. There is no evidence neurologically to suggest a stroke or TIA. Patient is post left total knee replacement December 19 and was exercising considerably that day Recommendations: 1. Patient does not need any additional neurologic testing or treatment. I do not see a need for an EEG. 2. Apparently, an MRI of the brain is pending. 3. Hydrate and address the anemia. Overall, I spent a total of 75 minutes with this case including review of records, review of CT films, direct evaluation the patient at bedside, report generation, discussion of the case with the patient, RN, and at bedside, and Dr. Louie, including differential diagnosis and treatment options. History of Present Illness Reason for Consultation: Patient is a 71-year-old, who I was asked to see at the request of Dr. Lee, for neurologic consultation regarding syncopal episode and other symptoms. Requesting Physician: Dinh Lee Attending Physician: Beni Louie MD History of Present Illness patient has a history of osteoarthritis and dyslipidemia. He is post left ankle surgery in May of this year, by Dr. Morales, after falling on the ice and fracturing it. He has had significant therapy and his ankle was doing quite well. Patient had a left total knee replacement December 19 of [address] Dr. Cameron. The procedure went well and he was exercising with physical therapy and by himself making good improvements. He awoke on December 26 feeling well. Around 11 30 he took and Oxy Contin and in anticipation of his physical therapy appointment. [employer] came and in the early afternoon he had his physical therapy and did well. He then laid down with ice on his leg and had a light lunch at 1430. by 1730 he was doing exercises again for his leg and felt diaphoretic and "clammy". He then sat down. At 1830 he got up with his walker to go to dinner and he felt very lightheaded. He was clammy and his told him to sit down. She noticed the diaphoresis and clammy skin. He then suddenly put his head back, his eyes rolled up and he had some twitching/ tremoring of a mild nature of his right upper extremity only. There was no jerking or stiffening of the limbs and no incontinence or tongue biting. He was breathing a little heavier but it a regular basis. His eyes were open and he was staring and not responding to her voice. This episode lasted 20-30 seconds and then he could talk and respond some. He still felt very woozy and a 2nd episode happened about a minute later lasting 20-30 seconds. After this he was back to his baseline following commands and interacting well. He did not have any recall of the events but did not have any post episode confusion all state. He arrived to the emergency room at 20:42 with a temperature of 36.5, pulse 73 and regular, respiratory rate 18, blood pressure 102/70, and O2 saturation 96 percent. In the emergency room his neurologic examination was unremarkable and he had no encephalopathy or meningeal signs. Hemoglobin was 9 and hematocrit was 28. He has no history of anemia otherwise. BUN was 29 and creatinine was 0.8. Rest of his Chem profile was unremarkable. TSH an urinalysis was unremarkable. CT scan of the head was unremarkable. CT angiography of the chest showed no abnormalities either. He had no further episodes and feels back to baseline this morning. Allergies Allergy/AdvReac Type Severity Reaction Status Date / Time latex Allergy Mild itchy nose Verified 12/19/22 06:19 Home Medications Medication Instructions Recorded Confirmed Type cetirizine 10 mg tablet (Zyrtec) 10 mg PO DAILY PRN Allergy Symptoms 11/05/21 12/26/22 History multivitamin 1 tab PO QAM 11/05/21 12/26/22 History coenzyme Q10 100 mg capsule (Co 100 mg PO HS 06/16/23 07/31/23 History Q-10) ezetimibe 10 mg tablet 10 mg PO QPM 11/11/22 12/26/22 History loratadine-pseudoephedrine ER 10 1 tab PO DAILY PRN Allergy Symptoms 11/11/22 12/26/22 History mg-240 mg tablet,extended [id number] (Claritin-D 24 Hour) simvastatin 40 mg tablet 40 mg PO QPM 11/11/22 12/26/22 History aspirin 81 mg tablet,delayed 81 mg PO BID #60 tabs 12/19/22 12/26/22 Rx release celecoxib 200 mg capsule (Celebrex) 200 mg PO Q12H PRN pain #30 caps 12/19/22 12/26/22 Rx oxycodone-acetaminophen 5 mg-325 1 tab PO Q6H PRN pain #30 tabs 12/19/22 12/26/22 Rx mg tablet (Percocet) Patient History Medical History Hyperlipidemia Osteoarthritis Left knee Surgical History H/O colonoscopy History of anesthesia reaction Spinal patch needed/placed after epidural for surgery in 1993 History of open reduction and internal fixation (ORIF) procedure 1993 - Right lower leg History of open reduction and internal fixation (ORIF) procedure Left ankle ORIF (06/09/22): LMA#5 + PNB at [facility] Hx of cataract extraction R/L Family History Mother , age 90 Heart disease Father , age 41 of an [place] Myocardial infarction Other No family history of adverse response to anesthesia Denies family history of Ovarian cancer Prostate cancer Breast cancer Lung cancer Colorectal cancer Social History (Updated 12/27/22 @ 10:02 by Lion Bergman MD) Smoking Status: Never smoker Tobacco Type: Cigarettes Second Hand Exposure: No; Do You Dip or Chew Tobacco: No; Hx Alcohol Use: Yes Alcohol type: wine Alcohol Intake Frequency Comment: daily Hx Substance Use: No Preferred Language: Palauan Communication Ability: Effective Visual Impairment: Partially Limited Hearing Ability: Normal Wheel Filler Required: No Beliefs That Will Affect Care: None marital status: Current Living Situation: Spouse 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 Feels Safe at Home: Yes Childhood Exposure to Second-Hand Smoke: Yes caffeine: Yes Dental Care, Regularly: Yes Physical Activity Frequency: Daily Seatbelt Use: always Sunscreen Use: Yes Assistive Devices: Glasses and Walker Review of Systems Constitutional: no fever, no fatigue and no weakness Eyes: no diplopia, no eye pain and no worsening vision Ear, Nose, Mouth, Throat: no ear pain, no tinnitus, no hearing loss, no dizziness, no snoring, no hoarseness and no dysphagia Respiratory: no cough and no dyspnea Cardiovascular: no chest pain, no palpitations and no lightheadedness Gastrointestinal: no abdominal pain, no nausea and no vomiting Musculoskeletal: no back pain, no neck pain, no radicular pain, no joint pain and no myalgia Integumentary: no rash and no lesions Neurologic: no gait abnormality, no localized weakness, no generalized weakness, no tingling, no numbness, no tremor(s), no abnormal movements, no headache(s), no abnormal speech, no confusion and no memory loss Psychiatric: no depression, no irritability, no anxiety, no difficulty concentrating, no confusion and no hallucinations Endocrine: no fatigue and no flushing Hematologic / Lymphatic: no easy bleeding and no easy bruising Allergy / Immunological: no urticaria and no problem reported Exam (Neuro) Physical Exam: The patient is right-handed. The patient is awake, alert, and attentive. Speech is normal without any aphasia or dysarthria. The patient can name objects, repeat phrases, and has normal spontaneous speech. Mentation and thought processes are intact, with orientatio n to person, place and time, and normal fund of knowledge. Attention and concentration are normal. Mood and affect are normal and appropriate. General appearance and grooming are normal. Short and long-term memory are intact. Pupils are 3 mm bilaterally and reactive to light. Extraocular eye muscles are intact without nystagmus. Visual acuity and visual najera seem normal grossly to confrontation. There are no deficits to sensation in the face in all 3 distributions of the fifth cranial nerve bilaterally. Corneal reflexes are positive bilaterally. Facial strength and symmetry was normal bilaterally. Hearing seems normal bilaterally. Palate moves well without asymmetry. There is normal sternocleidomastoid and trapezius (shoulder shrug) strength bilaterally. Tongue is midline with good strength bilaterally. Neck has a full range of motion without discomfort. There are no cervical bruits bilaterally. There are no cranial or ocular bruits. Heart is without murmur. There is a regular rhythm and rate. Cervical, thoracic, and lumbar spine are nontender to palpation. Gait was not tested but stance sitting up in bed was unremarkable. With outstretched arms there is no drift. There are no resting, postural, or action tremors. There is no ataxia with finger to nose testing. There is good facility in the hands. No other abnormal involuntary movements are noted. Motor strength is 5/5 diffusely in the arms bilaterally including deltoids, biceps, triceps, brachioradialis, wrist flexors and extensors, service worker, and intrinsic hand muscles. Motor strength is 5/5 diffusely in the legs bilaterally including hip flexors, quadriceps, hamstrings, gastrocnemius, tibialis anterior, tibialis posterior, and Peroneii muscles. Toe extensors are normal and there is good bulk in the extensor digitorum brevis muscles bilaterally. The limbs have good tone without rigidity or spasticity. There is no atrophy noted in the muscles. Muscle bulk is normal, there is no tenderness to palpation, no myotonia to percussion, and no fasciculations seen. Sensory examination is intact to touch and pin throughout all 4 limbs diffusely. Reflexes are 2/4 in the biceps, triceps, brachioradialis, quadriceps, and Achilles tendons bilaterally. There is no clonus bilaterally. Toes are downgoing with plantar stimulation bilaterally. Peripheral pulses are present and of normal quality distally in all 4 limbs. There is no peripheral edema noted in the limbs. Results & Data Vital Signs (Past 12 Hours) Vital Signs Temp Pulse Pulse Resp BP Pulse Ox O2 Del Method 12/27/22 08:01 36.9 C 56 L 18 110/67 96 Room Air 12/27/22 07:30 98 H 12/27/22 01:22 36.8 C 95 H 18 138/79 97 Room Air 12/26/22 23:38 84 18 112/73 98 Room Air PG Care Time/CCT Total # of Minutes Spent Total Time Spent with Patient: Total time spent is greater than 50% in coordination of care (as documented) at patient's floor/unit and/or counseling patient: Coding Level of Care Code 49299 INT INP/OBS CARE 3/75MIN Diagnoses Syncope R55 Seizure-like activity R56.9 Status post left knee replacement Z96.652 Time Spent (min) 75
[2022-12-27] MEDS ORDERED: PANTOprazole 40 MG in SYRINGE 0 ML IV SCH (10:30)
[2022-12-27 11:01] LABS: Estimated Average Glucose 108 mg/dl; Hemoglobin A1C 5.4 % (4.5-5.6)
[2022-12-27 13:21] LABS: Hemoglobin 7.8 g/dl (14.0-18.0)
--- NOTE | 2022-12-27 13:54 | Magnetic Resonance Report ---
MR brain wo con HISTORY: 71 years-old Male seizure vs cva acute stroke like symptoms COMPARISON: Head CT 12/26/2022 TECHNIQUE: Multiplanar multisequence MRI the brain was obtained without the use of IV contrast. FINDINGS: No restricted diffusion. Midline structures are unremarkable. Degenerative changes of the imaged cerv ical spine. No acute intracranial hemorrhage, midline shift, abnormal extra-axial collection, hydroce phalus or intracranial mass. No pathologic artifact on the T2*series. Involutional changes with moderate T2/FLAIR hyperintense foci throughout the white matter. Mesial tem poral lobes are within normal limits. No evidence of mesial temporal sclerosis, oswald matter heterotop ia, cortical dysplasia or acute seizure focus. Cerebral venous sinuses and major arterial flow voids appear patent. The skull and soft tissues are unremarkable. Prior bilateral lens repair. Mastoid air cells are clear. Minimal mucosal thickening of the paranasal sinuses. IMPRESSION: 1. No acute intracranial abnormality. No acute or subacute infarct. 2. Involutional changes with moderate chronic microvascular ischemic disease. ACT 112: Negative or not required by law. The above report was generated using voice recognition software. It may contain grammatical, syntax o r spelling errors. Electronically signed by: Al Bautista M.D. 12/27/2022 1:53 PM
[2022-12-27 14:00] LABS: Ferritin 113.1 ng/ml (8-388)
--- NOTE | 2022-12-27 14:22 | Hospitalist Progress Note ---
Date of Service December 27, 2022 Assessment & Plan (1) ABLA (acute blood loss anemia): Plan: Given the melena stools his anemia is likely due to upper GI bleeding. Recently underwent L TKR. pre-op Hb was >14. Now <8. T/C 2 units PRBCs. Blood consent obtained. Tx 1 unit PRBCs with serial H/H's thereafter. Fortunately BPs are stable at this time. See below. (2) Acute upper GI bleeding: Plan: Suspected. Elevated BUN, melena stools, etc support such. d/c diet; make NPO. Start PPI drip. Add carafate qid. Hold asa. Hold celebrex. [facility] consult requested; EGD planned for tomorrow. Gastritis vs PUD vs esophagitis vs other as culprit. (3) Melena: Plan: Fecal occult +. See above. (4) Syncope: Plan: Episodes x 2 on day of admission. Was likely 2nd to acute blood loss anemia/acute GI Bleeding rather than a primary neurological event. MRI brain negative. Seen by neurology - no further neuro w/u needed. (5) Seizure-like activity: Plan: Likely myoclonus in setting of syncope. Defer on EEG. Actual seizure event not suspected. Appreciate Dr Bergman's consultation from neurology. (6) Status post left knee replacement: Plan: 12.19.[address] Jhony Cameron. Doing excellent from ortho standpoint. Minimal pain. Incision looks great. Exira intact. Will notify Dr Cameron that patient is here. Unfortunately will have to place aspirin on hold due to the above. SCDs for DVT proph in meantime. (7) Dyslipidemia: Plan: Cont statin Plan DVT proph - stop aspirin and other chemical means; SCDs for now Pt's updated at bedside care d/w Dr Lezama from GI Admission and Anticipated Discharge Date Admission Date: December 26, 2022 Subjective patient developed melena stools late this am he had normal stools up until this point denies any abd pain, nausea, emesis at home he had been taking aspirin BID for DVT proph + celebrex BID for pain he does drink alcohol typically but has not drank any since his surgery no history of upper GI bleeding denies any other episodes of syncope or near-syncope denies dizziness today denies dyspnea ate breakfast/lunch today without any GI symptoms tele overnight wnl denies any issues with left knee (recent left total knee replacement) Review of Systems Review of Systems: cv - no chest pain pulm - no dyspnea GI - no vomiting, no hematemesis, no BRBPR; +melena musculo - left knee pain is minimal to none Physical Exam Physical Exam: gen - NAD, lying in bed comfortably skin - generalized pallor neck - no JVD mouth - MMM heart - RRR, s1 s2, no murmur lungs - CTA b/l abd - soft NT ND BS+ ext - no edema, pulses 2+ b/l musculo - left knee incision clean/dry, jay intact, no drainage Results & Data Results & Data Vital Signs (Past 12 Hours) Vital Signs Temp Pulse Pulse Resp BP Pulse Ox O2 Del Method 12/27/22 11:00 36.8 C 89 16 128/74 99 Room Air 12/27/22 08:01 36.9 C 56 L 18 110/67 96 Room Air 12/27/22 07:30 98 H Laboratory Results Laboratory Results - last 24 hr 12/27/22 12/27/22 12/27/22 09:08 09:08 09:08 WBC 7.04 RBC 2.81 L Hgb 8.4 L Hct 26.0 L MCV 92.5 MCH 29.9 MCHC 32.3 RDW Std Deviation 47.2 H RDW Coeff of Concepcion 13.9 Plt Count 237 MPV 10.0 Immature Gran % (Auto) 1.7 Neut % (Auto) 69.9 Lymph % (Auto) 18.5 Charles % (Auto) 4.5 Eos % (Auto) 5.1 Baso % (Auto) 0.3 Neut # (Auto) 4.92 Lymph # (Auto) 1.30 Charles # (Auto) 0.32 Eos # (Auto) 0.36 Baso # (Auto) 0.02 Immature Gran # (Auto) 0.12 Sodium 138 Potassium 4.3 Chloride 105 Carbon Dioxide 26 Anion Gap 7 BUN 39 H Creatinine 0.67 Est Cr Clr Drug Dosing 111.2 Est GFR ( Amer) 112.8 Est GFR (Non-Af Amer) 97.4 BUN/Creatinine Ratio 58.2 H Glucose 117 H Estimat Average Glucose 108 Hemoglobin A1c 5.4 Calcium 8.9 Magnesium 2.1 Iron TIBC Unsaturated IBC Transferrin % Sat Ferritin Triglycerides 163 H Cholesterol 125 LDL Cholesterol, Calc 65 VLDL Cholesterol, Calc 33 H HDL Cholesterol 27 Cholesterol/HDL Ratio 4.6 Stool Occult Bld Scrn Blood Type Antibody Screen Crossmatch 12/27/22 12/27/22 12/27/22 13:05 13:05 14:56 WBC RBC Hgb 7.8 L Hct 24.0 L MCV MCH MCHC RDW Std Deviation RDW Coeff of Concepcion Plt Count MPV Immature Gran % (Auto) Neut % (Auto) Lymph % (Auto) Charles % (Auto) Eos % (Auto) Baso % (Auto) Neut # (Auto) Lymph # (Auto) Charles # (Auto) Eos # (Auto) Baso # (Auto) Immature Gran # (Auto) Sodium Potassium Chloride Carbon Dioxide Anion Gap BUN Creatinine Est Cr Clr Drug Dosing Est GFR ( Amer) Est GFR (Non-Af Amer) BUN/Creatinine Ratio Glucose Estimat Average Glucose Hemoglobin A1c Calcium Magnesium Iron 72 TIBC 290 Unsaturated IBC 218 Transferrin % Sat 25 Ferritin 113.1 Triglycerides Cholesterol LDL Cholesterol, Calc VLDL Cholesterol, Calc HDL Cholesterol Cholesterol/HDL Ratio Stool Occult Bld Scrn Blood Type A Positive Antibody Screen NEGATIVE Crossmatch See Detail 12/27/22 12/27/22 18:57 21:45 WBC RBC Hgb 8.3 L Hct 24.8 L MCV MCH MCHC RDW Std Deviation RDW Coeff of Concepcion Plt Count MPV Immature Gran % (Auto) Neut % (Auto) Lymph % (Auto) Charles % (Auto) Eos % (Auto) Baso % (Auto) Neut # (Auto) Lymph # (Auto) Charles # (Auto) Eos # (Auto) Baso # (Auto) Immature Gran # (Auto) Sodium Potassium Chloride Carbon Dioxide Anion Gap BUN Creatinine Est Cr Clr Drug Dosing Est GFR ( Amer) Est GFR (Non-Af Amer) BUN/Creatinine Ratio Glucose Estimat Average Glucose Hemoglobin A1c Calcium Magnesium Iron TIBC Unsaturated IBC Transferrin % Sat Ferritin Triglycerides Cholesterol LDL Cholesterol, Calc VLDL Cholesterol, Calc HDL Cholesterol Cholesterol/HDL Ratio Stool Occult Bld Scrn Positive A Blood Type Antibody Screen Crossmatch PG Care Time/CCT Total # of Minutes Spent Total Time Spent with Patient: Total time spent is greater than 50% in coordination of care (as documented) at patient's floor/unit and/or counseling patient: Coding Level of Care Code 56047 SUB INP/OBS CARE 3/50MIN Diagnoses ABLA (acute blood loss anemia) D62 Acute upper GI bleeding K92.2 Melena K92.1 Syncope R55 Syncope type: unspecified Seizure-like activity R56.9 Status post left knee replacement Z96.652 Dyslipidemia E78.5 (4) Syncope Syncope type: unspecified Qualified Code(s): R55 - Syncope and collapse
[2022-12-27] MEDS ORDERED: ACETAMINOPHEN 500 MG TAB PO ONE (14:27)
[2022-12-27] MEDS ORDERED: SODIUM CHLORIDE 0.9% 250 ML IV PRN (14:27)
[2022-12-27] MEDS: SUCRALFATE 1 GM/10 ML UDC PO SCH ×3 (14:47→20:43)
--- NOTE | 2022-12-27 16:15 | XCELERA ---
[id number]\[id number]
[2022-12-27] MEDS: PANTOprazole 40 MG in DEXTROSE 5% 100 ML IV SCH ×2 (16:29→20:42)
--- NOTE | 2022-12-27 17:39 | Gastrointestinal Consultation ---
Date of Consultation December 27, 2022 Assessment & Plan (1) Syncope: (2) ABLA (acute blood loss anemia): (3) Melena: Discussed case with Dr. Louie of Hospitalist service Recommend patient be placed on Protonix gtt at 8 mg/hr Recommend clear liquid diet, NPO after midnight Transfuse PRN to maintain H/H >8/24 Proceed with EGD in AM History of Present Illness Reason for Consultation: Acute blood loss anemia, Melena Attending Physician: Beni Louie MD History of Present Illness Jeremy Olson is a 71 yo CM who underwent Left TKR last week and was discharged with Aspirin and Celebrex therapy, who presented to the ER last night with syncope. He was noted to have hypotension and was pale. Initially he had no complaints of dark stools. He states that he had a normal brown BM the morning of his arrival. He underwent a workup for questionable seizure activity, including a CT of the head which was normal, and a Neurology consult. His Hgb did show a significant decline from >14 prior to the procedure to his initial ER Hgb of 9. He was admitted and given IV fluids. This morning, he developed multiple dark bowel movements, as well as diaphoresis. His Hgb declined further to 7.8 and his BUN was 39. At the time I saw the patient, he denied any abdominal pain. He states that the first time he saw dark stools was after he presented to the hospital. He denies any abdominal pain, fevers, chills, nausea, vomiting, hematemesis, hematochezia, jaundice acholic stools, dark urine or pruritus. He just finished eating a lunch tray including chicken and stewed tomatoes. He has no further complaints. Allergies Allergy/AdvReac Type Severity Reaction Status Date / Time latex Allergy Mild itchy nose Verified 12/19/22 06:19 Home Medications Medication Instructions Recorded Confirmed Type cetirizine 10 mg tablet (Zyrtec) 10 mg PO DAILY PRN Allergy Symptoms 11/05/21 12/26/22 History multivitamin 1 tab PO QAM 11/05/21 12/26/22 History coenzyme Q10 100 mg capsule (Co 100 mg PO HS 11/11/22 12/26/22 History Q-10) ezetimibe 10 mg tablet 10 mg PO QPM 11/11/22 12/26/22 History loratadine-pseudoephedrine ER 10 1 tab PO DAILY PRN Allergy Symptoms 11/11/22 12/26/22 History mg-240 mg tablet,extended [id number] (Claritin-D 24 Hour) simvastatin 40 mg tablet 40 mg PO QPM 11/11/22 12/26/22 History aspirin 81 mg tablet,delayed 81 mg PO BID #60 tabs 12/19/22 12/26/22 Rx release celecoxib 200 mg capsule (Celebrex) 200 mg PO Q12H PRN pain #30 caps 12/19/22 12/26/22 Rx oxycodone-acetaminophen 5 mg-325 1 tab PO Q6H PRN pain #30 tabs 12/19/22 12/26/22 Rx mg tablet (Percocet) Patient History Medical History Hyperlipidemia Osteoarthritis Left knee Surgical History H/O colonoscopy History of anesthesia reaction Spinal patch needed/placed after epidural for surgery in 1993 History of open reduction and internal fixation (ORIF) procedure 1993 - Right lower leg History of open reduction and internal fixation (ORIF) procedure Left ankle ORIF (06/09/22): LMA#5 + PNB at [facility] Hx of cataract extraction R/L Family History Mother , age 90 Heart disease Father , age 41 of an [place] Myocardial infarction Other No family history of adverse response to anesthesia Denies family history of Ovarian cancer Prostate cancer Breast cancer Lung cancer Colorectal cancer Social History Smoking Status: Never smoker Tobacco Type: Cigarettes Second Hand Exposure: No; Do You Dip or Chew Tobacco: No; Hx Alcohol Use: Yes Alcohol type: wine Alcohol Intake Frequency Comment: daily Hx Substance Use: No Preferred Language: Faroese Communication Ability: Effective Visual Impairment: Partially Limited Hearing Ability: Normal Head Of History Required: No Beliefs That Will Affect Care: None marital status: Current Living Situation: Spouse 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 Feels Safe at Home: Yes Safety Concerns: Feels Safe At This Time Childhood Exposure to Second-Hand Smoke: Yes caffeine: Yes Dental Care, Regularly: Yes Physical Activity Frequency: Daily Seatbelt Use: always Sunscreen Use: Yes Assistive Devices: Walker Review of Systems Review of Systems: All systems reviewed & are unremarkable except as noted in HPI & below Physical Exam Constitutional: WD/WN, vitals as above Respiratory: normal respiratory effort, lungs clear to auscultation Cardiovascular: RRR, no murmur, no edema Gastrointestinal (Abdomen): normal bowel sounds, soft, nontender, no hepatosplenomegaly Skin: + pallor Psychiatric: A+Ox3, euthymic affect Results & Data Vital Signs (Past 12 Hours) Vital Signs Temp Pulse Pulse Resp BP BP Pulse Ox 12/27/22 17:21 85 12/27/22 16:55 36.8 C 90 16 129/73 99 12/27/22 16:40 37.1 C 87 16 122/65 97 12/27/22 15:35 36.9 C 65 20 111/65 96 12/27/22 16:24 36.9 C 90 16 127/69 97 12/27/22 11:00 36.8 C 89 16 128/74 99 12/27/22 08:01 36.9 C 56 L 18 110/67 96 12/27/22 07:30 98 H O2 Del Method 12/27/22 17:21 12/27/22 16:55 12/27/22 16:40 12/27/22 15:35 Room Air 12/27/22 16:24 12/27/22 11:00 Room Air 12/27/22 08:01 Room Air 12/27/22 07:30 PG Care Time/CCT Total # of Minutes Spent Total Time Spent with Patient: Total time spent is greater than 50% in coordination of care (as documented) at patient's floor/unit and/or counseling patient: Coding Level of Care Code 87071 IN/OBS CONSULT LVL 4,60M Diagnoses Syncope R55 Syncope type: unspecified ABLA (acute blood loss anemia) D62 Melena K92.1 (1) Syncope Syncope type: unspecified Qualified Code(s): R55 - Syncope and collapse
[2022-12-27 19:34] LABS: Hematocrit (blood only) 24.8 % (42.0-52.0); Hemoglobin 8.3 g/dl (14.0-18.0)
--- NOTE | 2022-12-27 19:50 | Billing Data ---
Date of Service December 27, 2022 Coding Level of Care Code 49639 INT INP/OBS CARE
[2022-12-28] MEDS: PANTOprazole 40 MG in DEXTROSE 5% 100 ML IV SCH ×2 (01:32→06:36)
[2022-12-28] MEDS: SODIUM CHLORIDE 0.9% 1000ML 1,000 ML IV SCH ×3 (01:33→17:28)
[2022-12-28 07:59] LABS: Hematocrit (blood only) 25.4 % (42.0-52.0); Hemoglobin 8.2 g/dl (14.0-18.0)
[2022-12-28 08:23] LABS: BUN Creatinine Ratio 20.3 (10-20); Calcium 8.6 mg/dl (8.6-10.3); Creatinine Clr Calc Pharmacy 106.7 ml/min; Est GFR (African American) 111.5 ml/min; Est GFR (Non-African American) 96.2 ml/min; Potassium 3.9 mmol/L (3.5-5.1)
--- NOTE | 2022-12-28 08:57 | History & Physical Bridge Note ---
Date of Service December 28, 2022 History & Physical Bridge Note I have examined the patient, reviewed the History & Physical and in the interval since the performance of the History & Physical I have noted the following changes of clinical significance: no changes noted Patient has remained NPO since prior to midnight. He notes a dark bowel movement last evening. H/H after transfusion was 8.2/25.4. He denies abdominal pain, heartburn, or reflux. He denies history of gastric ulcers and denies family history of GI issues. He continues an IV Protonix drip. Keep NPO & proceed with EGD for further evaluation of melena/anemia. Supervising Physician Co-Signing Physician Notes Agree with VIANNEY Ott as above Abd: Soft, NT, ND, +BS Continue current therapy and supportive care Proceed with EGD now due to acute blood loss anemia and melena.
[2022-12-28] MEDS: SUCRALFATE 1 GM/10 ML UDC PO SCH ×4 (09:12→20:56)
[2022-12-28] MEDS ORDERED: IRON SUCROSE 300 MG in SODIUM CHLORIDE 0.9% 250 ML IV ONE (09:30)
--- NOTE | 2022-12-28 09:56 | Anesthesiology Consultation ---
Date of Service December 28, 2022 History Surgery Operation Date: 12/28/22 16:30 Proposed Procedures p Esophagogastroduodenoscopy Dr Lezama - Richard Lezama, DO Height/Weight Height: 5 ft 8 in Weight: 86.772 kg Allergies Allergy/AdvReac Type Severity Reaction Status Date / Time latex Allergy Mild itchy nose Verified 12/19/22 06:19 Medications Home Medications Medication Instructions Recorded Confirmed Last Taken cetirizine 10 mg tablet (Zyrtec) 10 mg PO DAILY PRN Allergy Symptoms 11/05/21 12/26/22 2 Days Ago ~06/07/22 multivitamin 1 tab PO QAM 11/05/21 12/26/22 1 Week Ago ~12/12/22 coenzyme Q10 100 mg capsule (Co 100 mg PO HS 11/11/22 12/26/22 3 Weeks Ago Q-10) ~11/28/22 ezetimibe 10 mg tablet 10 mg PO QPM 11/11/22 12/26/22 12/18/22 22:00 loratadine-pseudoephedrine ER 10 1 tab PO DAILY PRN Allergy Symptoms 11/11/22 12/26/22 12/18/22 07:00 mg-240 mg tablet,extended [id number] (Claritin-D 24 Hour) simvastatin 40 mg tablet 40 mg PO QPM 11/11/22 12/26/22 12/18/22 22:00 aspirin 81 mg tablet,delayed 81 mg PO BID #60 tabs 12/19/22 12/26/22 Unknown release celecoxib 200 mg capsule (Celebrex) 200 mg PO Q12H PRN pain #30 caps 12/19/22 12/26/22 Unknown oxycodone-acetaminophen 5 mg-325 1 tab PO Q6H PRN pain #30 tabs 12/19/22 12/26/22 Unknown mg tablet (Percocet) Active Medications Generic Name Dose Route Start Last Admin Trade Name Freq PRN Reason Stop Dose Admin Aspirin 81 mg 12/27/22 01:16 12/27/22 08:31 Aspirin 81 Mg Ectab PO 01/26/23 01:15 81 mg BID JACKELINE Administration Ezetimibe 10 mg 12/27/22 21:00 12/27/22 20:43 Ezetimibe 10 Mg Tablet PO 01/26/23 20:59 10 mg QPM JACKELINE Administration Sodium Chloride 1,000 mls @ 125 mls/hr 12/27/22 08:15 12/28/22 09:12 Nss 1000ml IV 01/26/23 08:14 125 mls/hr .Q8H JACKELINE Administration Pantoprazole Sodium 40 mg/ 100 mls @ 20 mls/hr 12/27/22 15:30 12/28/22 06:36 Dextrose IV 01/26/23 15:29 8 mg/hr Q5H JACKELINE 20 mls/hr Administration 8 MG/HR Simvastatin 40 mg 12/27/22 21:00 12/27/22 20:43 Simvastatin 40 Mg Tab PO 01/26/23 20:59 40 mg QPM JACKELINE Administration Sucralfate 1 gm 12/27/22 13:35 12/28/22 09:12 Sucralfate 1 Gm/10 Ml Udc PO 01/26/23 13:34 1 gm QID JACKELINE Administration Past Medical History Medical History Hyperlipidemia Osteoarthritis Left knee Past Family History Family History Mother , age 90 Heart disease Father , age 41 of an [place] Myocardial infarction Other No family history of adverse response to anesthesia Denies family history of Ovarian cancer Prostate cancer Breast cancer Lung cancer Colorectal cancer Past Surgical History Surgical History H/O colonoscopy History of anesthesia reaction Spinal patch needed/placed after epidural for surgery in 1993 History of open reduction and internal fixation (ORIF) procedure 1993 - Right lower leg History of open reduction and internal fixation (ORIF) procedure Left ankle ORIF (06/09/22): LMA#5 + PNB at [facility] Hx of cataract extraction R/L Social History Smoking Status: Never smoker Do You Dip or Chew Tobacco: No Hx Alcohol Use: Yes Alcohol type: wine alcohol intake frequency: 0-2 drinks per day Hx Substance Use: No substance use type: does not use Physical Exam Vital Signs Last Vital Signs Temp 36.7 C 12/28/22 08:03 Pulse 84 12/28/22 08:03 Resp 16 12/28/22 08:03 BP 120/73 12/28/22 08:03 Pulse Ox 97 12/28/22 08:03 O2 Del Method Room Air 12/28/22 08:03 Testing Laboratory Results 12/28/22 07:10 12/28/22 07:10 Hemoglobin A1c 5.4 % (4.5-5.6) 12/27/22 09:08 Urine Color Yellow 12/26/22 21:55 Urine Appearance Clear (Clear) 12/26/22 21:55 Urine pH 5.5 (4.5-7.5) 12/26/22 21:55 Ur Specific [place] 1.043 (1.000-1.030) H 12/26/22 21:55 Urine Protein Negative (Negative) 12/26/22 21:55 Urine Glucose (UA) Negative (Negative) 12/26/22 21:55 Urine Ketones Trace (Negative) H 12/26/22 21:55 Urine Nitrite Negative (Negative) 12/26/22 21:55 Ur Leukocyte Esterase Negative (Negative) 12/26/22 21:55 Blood Type A Positive 12/27/22 14:56 Antibody Screen NEGATIVE 12/27/22 14:56
--- NOTE | 2022-12-28 11:22 | GI REPORT ---
Patient Name: Jeremy Olson Procedure Date: 12/28/2022 10:53 AM Date of : 1950 Admit Type: Inpatient Age: 71 Gender: Male Attending MD: Richard Lezama DO, Procedure: Upper GI endoscopy Providers: Richard Lezama DO Referring MD: Beni Louie Indications: Acute post hemorrhagic anemia, Melena Medicines: Monitored Anesthesia Care Complications: No immediate complications. Estimated Blood Loss: Estimated blood loss: none. Procedure: Pre-Anesthesia Assessment: - Prior to the procedure, a History and Physical was performed, and patient medications and allergies were reviewed. The patient's tolerance of previous anesthesia was also reviewed. The risks and benefits of the procedure and the sedation options and risks were discussed with the patient. All questions were answered, and informed consent was obtained. Prior Anticoagulants: The patient has taken no anticoagulant or antiplatelet agents except for aspirin. ASA Grade Assessment: III - A patient with severe systemic disease. After reviewing the risks and benefits, the patient was deemed in satisfactory condition to undergo the procedure. After obtaining informed consent, the endoscope was passed under direct vision. Throughout the procedure, the patient's blood pressure, pulse, and oxygen saturations were monitored continuously. The Endoscope was introduced through the mouth, and advanced to the second part of duodenum. The upper GI endoscopy was accomplished without difficulty. The patient tolerated the procedure well. Findings: Two superficial esophageal ulcers with no stigmata of recent bleeding were found 38 cm from the incisors. The largest lesion was 8 mm in largest dimension. A small hiatal hernia was present. Localized mild inflammation characterized by erosions was found in the gastric antrum. Biopsies were taken with a cold forceps for histology. The examined duodenum was normal. Impression: - Esophageal ulcers with no stigmata of recent bleeding. - Small hiatal hernia. - Gastritis. Biopsied. - Normal examined duodenum. Recommendation: - Return patient to [facility] for ongoing care. - Use Protonix (pantoprazole) 40 mg IV BID - Clear liquid diet. - Await pathology results. Richard Lezama DO 12/28/2022 11:22:32 AM This report has been signed electronically. Note Initiated On: 12/28/2022 10:53 AM Number of Addenda: 0 I attest to the content of the Intraoperative Record and orders documented therein, exceptions below {[id number]}
--- NOTE | 2022-12-28 11:50 | Communication Note ---
Date of Service: December 28, 2022 Patient underwent an EGD today that indicated 2 esophageal ulcers, a hiatal hernia, & gastritis. Biopsies were obtained. At the present time, would advise: * IV Protonix 40 mg BID * Patient will need Protonix 40 mg BID x 8 weeks, then daily thereafter * Avoid NSAIDs * Await biopsies * Clear liquids now, can advance later today/tomorrow as tolerated * Continue to monitor H/H * Remain hospitalized today * Outpatient follow-up in our GI clinic
[2022-12-28] MEDS: PANTOprazole 40 MG in SYRINGE 0 ML IV SCH ×2 (12:10→20:56)
--- NOTE | 2022-12-28 12:10 | Anesthesiology Progress Note ---
Date of Service December 28, 2022 Anesthesia Post Procedure Vital Signs Vital Signs: Temp Pulse Pulse Resp BP BP BP 12/28/22 12:08 36.8 C 81 18 135/79 12/28/22 11:46 80 16 125/73 12/28/22 11:31 77 16 121/78 12/28/22 11:16 86 16 126/69 12/28/22 10:13 36.7 C 82 16 133/71 12/28/22 07:23 83 12/28/22 08:03 36.7 C 84 16 120/73 12/28/22 02:11 36.8 C 82 14 129/75 12/27/22 22:08 81 12/27/22 22:52 36.8 C 80 15 128/82 12/27/22 19:55 36.9 C 83 16 124/78 12/27/22 18:37 37.0 C 83 16 132/78 12/27/22 17:21 85 12/27/22 18:25 36.6 C 83 17 138/78 12/27/22 17:25 37.1 C 85 16 127/77 12/27/22 16:55 36.8 C 90 16 129/73 12/27/22 16:40 37.1 C 87 16 122/65 12/27/22 15:35 36.9 C 65 20 111/65 12/27/22 16:24 36.9 C 90 16 127/69 Pulse Ox O2 Del Method 12/28/22 12:08 100 Room Air 12/28/22 11:46 99 Room Air 12/28/22 11:31 100 Room Air 12/28/22 11:16 97 Room Air 12/28/22 10:13 98 Room Air 12/28/22 07:23 12/28/22 08:03 97 Room Air 12/28/22 02:11 98 Room Air 12/27/22 22:08 12/27/22 22:52 96 Room Air 12/27/22 19:55 98 Room Air 12/27/22 18:37 98 12/27/22 17:21 12/27/22 18:25 97 12/27/22 17:25 98 12/27/22 16:55 99 12/27/22 16:40 97 12/27/22 15:35 96 Room Air 12/27/22 16:24 97 Transfer of Care Handoff Completed per policy Notes Mental Status: alert / awake / arousable Patient Amnestic to Procedure: Yes Nausea / Vomiting: adequately controlled Pain: adequately controlled Airway Patency, RR, SpO2: stable & adequate BP & HR: stable & adequate Hydration State: stable & adequate Anesthetic Complications: no major complications apparent and Pt Satisfied with anesthetic care
--- NOTE | 2022-12-28 20:44 | Hospitalist Progress Note ---
Date of Service December 28, 2022 Assessment & Plan (1) ABLA (acute blood loss anemia): Plan: 2nd upper GI bleeding. s/p 1 unit PRBCs yesterday. Stable H/H overnight. BPs stable. Recently underwent L TKR. pre-op Hb was >14. Lowest Hb 7.8. ABLA likely 2nd to esophageal ulcers +/- gastritis. Cont IV PPI. Clear liquid diet. H/H am. Appreciate Dr Lezama's consultation. (2) Acute upper GI bleeding: Plan: s/p EGD today by Dr Lezama. 2 esophageal ulcers seen along with gastritis. Statistically these 2 issues are the likely cause of his bleeding. H/H stable last 24 hours. Cont to hold aspirin. No further NSAIDs including celebrex. Cont IV PPI. Clears today, then advance diet thereafter. (3) Melena: Plan: see EGD results above. (4) Syncope: Plan: Episodes x 2 on day of admission. Was likely 2nd to acute blood loss anemia/acute GI Bleeding rather than a primary neurological event. MRI brain negative. Echo wnl. Seen by neurology - no further neuro w/u needed. (5) Seizure-like activity: Plan: Likely myoclonus in setting of syncope. Actual seizure event not suspected. Appreciate Dr Bergman's consultation from neurology. (6) Status post left knee replacement: Plan: 12.19.[address] Jhony Cameron. Doing excellent from ortho standpoint. Minimal pain. Incision looks great. Patriot intact. As courtesy message left for Dr Cameron that patient is here. Unfortunately will have to place aspirin on hold due to the above. SCDs for DVT proph in meantime. Will ask GI when asa can be safely resumed. (7) Dyslipidemia: Plan: Cont statin Plan DVT proph - SCDs are in place can stop IV fluids Admission and Anticipated Discharge Date Admission Date: December 27, 2022 Subjective saw patient post-EGD he was resting comfortably denies nausea, emesis, abd pain last stool was last night - melena no stool today tolerated clears post-EGD without issue denies any dizziness or pre-syncope/syncope left knee - minimal to no pain Review of Systems Review of Systems: cv - no chest pain pulm - no dyspnea or [facility] GI - no BRBPR Physical Exam Physical Exam: gen - NAD, lying in bed comfortably skin - generalized pallor - improved neck - no JVD mouth - MMM heart - RRR, s1 s2, no murmur lungs - CTA b/l abd - soft NT ND BS+ ext - no edema, pulses 2+ b/l Results & Data Results & Data Vital Signs (Past 12 Hours) Vital Signs Temp Pulse Pulse Resp BP BP Pulse Ox 12/28/22 19:00 36.8 C 87 18 144/78 H 99 12/28/22 14:20 81 12/28/22 15:20 37.0 C 82 18 132/75 98 12/28/22 12:08 36.8 C 81 18 135/79 100 12/28/22 11:46 80 16 125/73 99 12/28/22 11:31 77 16 121/78 100 12/28/22 11:16 86 16 126/69 97 12/28/22 10:13 36.7 C 82 16 133/71 98 O2 Del Method 12/28/22 19:00 Room Air 12/28/22 14:20 12/28/22 15:20 Room Air 12/28/22 12:08 Room Air 12/28/22 11:46 Room Air 12/28/22 11:31 Room Air 12/28/22 11:16 Room Air 12/28/22 10:13 Room Air Laboratory Results Laboratory Results - last 24 hr 12/27/22 12/28/22 12/28/22 21:45 07:10 07:10 Hgb 8.2 L Hct 25.4 L Sodium 140 Potassium 3.9 Chloride 109 H Carbon Dioxide 27 Anion Gap 4 BUN 14 D Creatinine 0.69 Est Cr Clr Drug Dosing 106.7 Est GFR ( Amer) 111.5 Est GFR (Non-Af Amer) 96.2 BUN/Creatinine Ratio 20.3 H Glucose 100 H Calcium 8.6 Stool Occult Bld Scrn Positive A PG Care Time/CCT Total # of Minutes Spent Total Time Spent with Patient: Total time spent is greater than 50% in coordination of care (as documented) at patient's floor/unit and/or counseling patient: Coding Level of Care Code 17734 SUB INP/OBS CARE 2/35MIN Diagnoses ABLA (acute blood loss anemia) D62 Acute upper GI bleeding K92.2 Melena K92.1 Syncope R55 Syncope type: unspecified Seizure-like activity R56.9 Status post left knee replacement Z96.652 Dyslipidemia E78.5 (4) Syncope Syncope type: unspecified Qualified Code(s): R55 - Syncope and collapse
[2022-12-28] MEDS: EZETIMIBE 10 MG TABLET PO SCH (20:57)
[2022-12-28] MEDS: SIMVASTATIN 40 MG TAB PO SCH (20:57)
--- NOTE | 2022-12-28 23:05 | Electrocardiogram Report ---
Test Reason : Blood Pressure : / mmHG Vent. Rate : 085 BPM Atrial Rate : 085 BPM P-R Int : 144 ms QRS Dur : 086 ms QT Int : 356 ms P-R-T Axes : 050 022 051 degrees QTc Int : 423 ms Normal sinus rhythm Normal ECG When compared with ECG of 09-JUN-2022 13:45, No significant change was found Confirmed by Esvin Lucero ([id number]) on 12/28/2022 11:05:19 PM Referred By: REFERRED SELF Confirmed By:Esvin Lucero
[2022-12-29 07:15] LABS: Hematocrit (blood only) 24.7 % (42.0-52.0); Hemoglobin 8.1 g/dl (14.0-18.0); Mean Corpuscular Hemoglobin 30.3 pg (25.0-34.0); Mean Corpuscular Hgb Conc 32.8 g/dL (32.0-36.0); Mean Corpuscular Volume 92.5 fL (80.0-100.0); Mean Platelet Volume 10.1 fL (9.4-12.4); Platelet Count 190 K/uL (130-400); RDW Coefficient of Variation 14.4 % (11.5-14.5); RDW Standard Deviation 47.9 fL (36.4-46.3); Red Blood Count 2.67 M/uL (4.70-6.10); White Blood Count 5.74 K/ul (4.8-10.8)
[2022-12-29 07:34] LABS: Creatinine Clr Calc Pharmacy 100.7 ml/min; Est GFR (African American) 108.9 ml/min
[2022-12-29] MEDS: SUCRALFATE 1 GM/10 ML UDC PO SCH (08:37)
[2022-12-29] MEDS: PANTOprazole 40 MG in SYRINGE 0 ML IV SCH (08:37)
[2022-12-29] MEDS ORDERED: IRON SUCROSE 300 MG in SODIUM CHLORIDE 0.9% 250 ML IV ONE (09:00)
--- NOTE | 2023-01-03 19:42 | Discharge Summary ---
Date of Service date of admission - December 26, 2022 date of discharge - December 29, 2022 Admission HPI Per Admitting Provider 71 yo male with PMHx of allergic rhinitis and dyslipidemia presents with seizure like activity. at bedside. This afternoon he had finished his physical therapy s/p TKA and shortly after started having chills, diaphoresis, and lightheadedness. He sat down on a chair and per his head fell backwards with his eyes wide open for about 30 seconds. During this he had a mild R arm tremor. Denies post ictal state but does not recall this seizure like activity episode. His proceeded to call 911 and the patient had a 2nd episode similar to the first. Denies fever, fatigue, headache, chest pain, sob, abd pain, nausea, vomiting, diarrhea, constipation, dysuria, extremity numbness/tingling/weakness. FHx of stroke in grandfather as well as IN in father at the age of 41. He has no h/o seizure or syncope. No heart history. Of note patient did have a L TKA performed 1 wk ago. He is on ASA for DVT ppx and celecoxib for pain/anti-inflammation. He did take an oxycodone earlier in the day without complaints and has taken a few doses over the past week. He has been doing PT at home and progressing well without complaints. Follows with ortho. Principal Diagnosis 1. Syncope due to upper gastrointestinal bleeding 2. Upper Gastrointestinal bleeding 3. Esophageal ulcers 4. Gastritis 5. Acute blood loss anemia - 1 unit of blood given; 2 iron infusions given 6. Recent left knee replacement 7. Small hiatal hernia Discharge Exam gen - NAD, lying in bed comfortably neck - no JVD mouth - MMM heart - RRR, s1 s2, no murmur lungs - CTA b/l abd - soft NT ND BS+ ext - no edema, pulses 2+ b/l skin - left knee incision with jay intact; no drainage; clean/dry; no erythema Discharge Data Allergies Allergy/AdvReac Type Severity Reaction Status Date / Time latex Allergy Mild itchy nose Verified 01/02/23 15:30 No Known Drug Allergies Allergy Verified 01/02/23 15:30 Consultations [facility] Neurology [facility] Gastroenterology Physical Therapy Procedures Performed Operation Date: 12/28/22 16:30 Actual Procedures EGD Biopsy Cytology - Richard Tierney Case, DO Impression: - Esophageal ulcers with no stigmata of recent bleeding. - Small hiatal hernia. - Gastritis. Biopsied. - Normal examined duodenum. 1 unit PRBCs 2 IV venofer infusions Ordered Studies Chest CTA 12/26/22 21:02 Exam(s): CTA CHEST IV Amt: 119 ml optiray 350 EXAM: CT Angiography Chest With Intravenous Contrast CLINICAL HISTORY: Reason for exam: PE - syncope post op. TECHNIQUE: Axial computed tomographic angiography images of the chest with intravenous contrast. CTDI is 26.5 mGy and DLP is 948.6 mGy-cm. Automated exposure control was utilized for the study. A dose lowering technique was utilized adhering to the principles of ALARA. MIP reconstructed images were created and reviewed. COMPARISON: No relevant prior studies available. FINDINGS: Pulmonary arteries: Unremarkable. No acute pulmonary embolism. Aorta: Atherosclerotic changes of the aorta. No thoracic aortic aneurysm. Lungs: Unremarkable. No mass. No consolidation. Pleural space: Unremarkable. No significant effusion. No pneumothorax. Heart: Unremarkable. No cardiomegaly. No significant pericardial effusion. No evidence of RV dysfunction. Mediastinum: Small hiatal hernia. Bones/joints: Degenerative changes of the spine. No acute fracture. No dislocation. Soft tissues: Unremarkable. Lymph nodes: Unremarkable. No enlarged lymph nodes. IMPRESSION: No acute pulmonary embolism. Electronically signed by: Andrey Medeiros MD 12/26/22 22:[address] 12/26/22 21:02 Exam(s): CT HEAD Without Contrast EXAM: CT Head Without Intravenous Contrast CLINICAL HISTORY: Reason for exam: syncope. TECHNIQUE: Axial computed tomography images of the head/brain without intravenous contrast. CTDI is 35.65 mGy and DLP is 625.41 mGy-cm. Automated exposure control was utilized for the study. A dose lowering technique was utilized adhering to the principles of ALARA. COMPARISON: No relevant prior studies available. FINDINGS: No acute intracranial hemorrhage. No midline shift or mass effect. The territorial oswald-white matter differentiation is maintained throughout. Age-related cerebral volume loss. Periventricular and subcortical white matter hypoattenuation, consistent with chronic microangiopathy. The visualized orbits appear grossly unremarkable. The calvarium is intact. The visualized paranasal sinuses and mastoid air cells are grossly clear. IMPRESSION: No acute intracranial hemorrhage, midline shift, or mass effect. Electronically signed by: Andrey Medeiros MD 12/26/22 22:00 PM Brain MRI 12/27/22 01:16 MR brain wo con HISTORY: 71 years-old Male seizure vs cva acute stroke like symptoms COMPARISON: Head CT 12/26/2022 TECHNIQUE: Multiplanar multisequence MRI the brain was obtained without the use of IV contrast. FINDINGS: No restricted diffusion. Midline structures are unremarkable. Degenerative changes of the imaged cervical spine. No acute intracranial hemorrhage, midline shift, abnormal extra-axial collection, hydrocephalus or intracranial mass. No pathologic artifact on the T2*series. Involutional changes with moderate T2/FLAIR hyperintense foci throughout the white matter. Mesial temporal lobes are within normal limits. No evidence of mesial temporal sclerosis, oswald matter heterotopia, cortical dysplasia or acute seizure focus. Cerebral venous sinuses and major arterial flow voids appear patent. The skull and soft tissues are unremarkable. Prior bilateral lens repair. Mastoid air cells are clear. Minimal mucosal thickening of the paranasal sinuses. IMPRESSION: 1. No acute intracranial abnormality. No acute or subacute infarct. 2. Involutional changes with moderate chronic microvascular ischemic disease. ACT 112: Negative or not required by law. The above report was generated using voice recognition software. It may contain grammatical, syntax or spelling errors. Electronically signed by: Al Bautista M.D. 12/27/2022 1:53 PM Hospital Course (1) ABLA (acute blood loss anemia): 2nd upper GI bleeding - likely from esophageal ulcers +/- gastritis as seen on EGD by Dr Richard Lezama. s/p 1 unit PRBCs while here. s/p 2 runs of IV venofer. Post-transfusion and post-EGD there was no evidence of ongoing bleeding given stability of his hemoglobin. Recently underwent Left TKR. pre-op Hemoglobin was >14. Lowest Hb here was 7.8. Discharge Hb was 8.1. He will need a repeat CBC in ~5 days post-discharge for stability. (2) Acute upper GI bleedinnd to esophageal ulcers +/- gastritis as seen on EGD. Aspirin was placed on hold during the hospitalization. Celebrex was discontinued. He received IV PPI drip, then transitioned to protonix 40mg PO BID at discharge. He will take such for 2 months, then once daily thereafter. Following EGD he was placed on a clear liquid diet, then ultimately advanced and tolerated such without difficulty. At discharge he was advised to avoid all NSAIDs. He can resume aspirin 81mg BID for DVT prophylaxis 24 hours post-discharge. (3) Syncope: Episodes x 2 on day of admission. Was likely 2nd to acute blood loss anemia/acute GI Bleeding rather than a primary neurological event. MRI brain negative. Echo wnl. CT head negative. CTA chest negative for PE. Telemetry was normal while here. Seen by [facility] Neurology - no further neuro work-up or follow-up needed. (4) Seizure-like activity: Likely myoclonus in setting of syncope. Actual seizure event not suspected. (5) Status post left knee replacement: 12.19.[address] Jhony Cameron. Doing excellent from ortho standpoint. Minimal pain. Incision looks great. Forbes intact. Unfortunately aspirin had to be placed on hold due to his GI bleeding. SCDs for DVT prophylaxis was used in kati. Aspirin can be resumed 24 hours post-discharge. Patient has follow-up for incision check/staple removal with [facility] within a few days of discharge. (6) Dyslipidemia: Cont statin (7) Hiatal hernia: small on EGD. PPI. Total Time Total Time Spent Total Time Spent (In Minutes): 45 Discharge Plan Discharge Items Patient Disposition: Home - Self-Care Reason For Visit: SEIZURE LIKE ACTIVITY Discharge Diagnosis: 1. Syncope (passing out spells) due to upper gastrointestinal bleeding 2. Upper Gastrointestinal bleeding 3. Esophageal ulcers 4. Gastritis 5. Acute blood loss anemia - 1 unit of blood given; 2 iron infusions given 6. Recent left knee replacement 7. Small hiatal hernia Activity: As commented below Activity Comment: follow any previous instructions given by Dr Cameron following your surgery Lifting Comment: Follow any previous instructions given by Dr Cameron Bathing Comment: Follow any previous bathing instructions given by Dr Cameron Exercise/Sports: Wait until after follow-up appointment Driving/Machine Use: Follow any driving restrictions, if any, given by Dr Cameron Non-emergency contact: Primary Care Provider, Surgeon and Safety Instructor Call non-emergency contact if: you have any medication questions, your symptoms worsen, your wound has increased redness, your wound has increased drainage and your wound pain has increased Follow-up/Referrals: Barbie Dominguez PA-C [Physician School Administrator] - 01/31/23 11:00 am (follow-up for esophageal ulcers/GI bleeding ) Jhony Heath PA-C [Physician School Administrator] - 01/03/23 11:40 am (post-op knee check ) Jhony Rodriguez DO [Primary Care Provider] - 01/02/23 3:30 pm (Follow up scheduled on 01/02/23 @ 3:30 with Allyson Rico) Diet: Heart Healthy Diet Comment: [facility] foods x 1 week (avoid fried foods, spicy foods, excess caffeine) Addtl Attending Provider Instructions: Mr Olson, You were hospitalized after having had 2 brief episodes of syncope (passing out) at home. Initially there was concern for a stroke or seizure. MRI brain and CT head were both normal. However, it became more clear that you were having gastrointestinal bleeding as evidenced by having dark stools, worsening anemia, and indeed the stool tested positive for blood. [facility] did not feel that your syncope was due to a neurological event. The arm shaking was likely due to the syncope itself. We call the shaking "myoclonus." The gastrointestinal bleeding was the likely cause of your passing out spells. You received 1 unit of blood and 2 iron infusions. Your bleeding stopped with use of intravenous acid reducers. Your discharge hemoglobin level is 8.1. This has been stable for 48 hours suggesting no further bleeding. On 12/28/22 you underwent an upper end[facility] (EGD) [facility] Dr [facility]. This revealed 2 ulcers in your esophagus as well as mild gastritis (irritation) in your stomach. The ulcers likely caused your bleeding. Recent aspirin use, celebrex use, previous alcohol consumption, and potentially reflux disease all contributed to the ulcers. Recommendations - 1. Pantoprazole 40mg twice daily x 2 months, then once daily thereafter. 2. [facility] foods for 1 week. 3. Recommend avoiding alcohol until you are off the aspirin for DVT prevention. 4. OK to resume your aspirin 81mg twice daily on 12/30/22. 5. STOP celebrex use. 6. DO NOT use [id number] motrin, ibuprofen, aleve, naprosyn, diclofenac/voltaren, etc. These are anti-inflammatory pills and can contribute to GI bleeding. 7. Tylenol IS ok to use for aches/pains. Tylenol does not cause GI bleeding. 8. Follow any driving restrictions as outlined by Dr Cameron. Also, do not drive if you are using oxycodone narcotic pain killer medication. 9. Repeat blood count next 01/03/23. 10. You can participate with therapy for your knee replacement but you may experience fatigue due to the anemia. It may be prudent to skip therapy tomorrow but resume sometime next week to allow additional rest & recovery. 11. You may see dark stools for another 1-2 days then your stools should normalize/turn brown after that. Any dark stool in the next few days is old blood from the prior bleeding. Follow-up - see separate section Return to [facility] if - * you have recurrent episodes of dizziness/lightheadedness/syncope * you have extreme weakness * you have abdominal pains * you see black/dark stools, especially if you have had a period of normal brown stool * you see bright red blood in your stool * any other concerns It was our pleasure to care for you! -Dr Louie Pending Studies at Discharge: No Stand-Alone Forms: My [facility], Smoking Cessation Medications and DC Order Prescriptions: New pantoprazole [Protonix] 40 mg tablet,delayed release (DR/EC) 40 mg PO BID Qty: 60 1RF Continued cetirizine [Zyrtec] 10 mg tablet 10 mg PO DAILY PRN (Reason: Allergy Symptoms) multivitamin Tablet 1 tab PO QAM Claritin-D 24 Hour 10-240 mg Tablet Extended Release 24 Hr 1 tab PO DAILY PRN (Reason: Allergy Symptoms) coenzyme Q10 [Co Q-10] 100 mg Capsule 100 mg PO HS simvastatin 40 mg tablet 40 mg PO QPM ezetimibe 10 mg tablet 10 mg PO QPM oxycodone-acetaminophen [Percocet] 5-325 mg tablet 1 tab PO Q6H PRN (Reason: pain) Qty: 30 0RF Held aspirin 81 mg tablet,delayed release (DR/EC) 81 mg PO BID Qty: 60 0RF Hold Instructions: Resume on 12/30/22. Discontinued celecoxib [Celebrex] 200 mg capsule 200 mg PO Q12H PRN (Reason: pain) Qty: 30 0RF Discharge Orders: Discharge Order (Routine); Ordered 12/29/22 Ordered By: Beni Dang/Other Patient Handouts: Esophageal Ulcer, Understanding Gastritis Admission Data Admit Date/Time: 12/26/22 23:56 Attending Provider: Beni Louie Admit Provider: Dinh Lee Primary Care Provider: Jhony Rodriguez Other Providers: David Arshad ; Lion Bergman ; Richard Lezama Other Interventions: Discharge Summary Assessment (RN) Last Done: 12/28/22 11:41 Coding Level of Care Code 03764 INP/OBS DISCH >30 MIN Diagnoses ABLA (acute blood loss anemia) D62 Acute upper GI bleeding K92.2 Syncope R55 Syncope type: unspecified Seizure-like activity R56.9 Status post left knee replacement Z96.652 Dyslipidemia E78.5 Hiatal hernia K44.9
== END 2022-12-29 13:24 | disposition home or self-care (01) | DRG 811 ==
LOC: ED 19:53 → 2S 19:53 → SUATTDRO 23:56 → 2S 12-27 00:59